=== PATIENT | male | born 1985 | race Hispanic/Latino ===

== ENCOUNTER 2017-01-03 15:37 | Inpatient (IN) | payer MEDICAID, OTHER ==
[2017-01-03 15:47] VITALS: BMI 31.6
--- NOTE | 2017-01-03 15:53 | C.PDOC ---
History Of Present Illness 31 Y/O MALE PRESENTS TO ED REQUESTING HEROIN DETOX. PT WAS PRESCREENED PRIOR TO ARRIVAL. NOTES LAST USE WAS THIS MORNING. PT DENIES SI/HI, NAUSEA, VOMITING, OR ANY OTHER MEDICAL COMPLAINTS. Time Seen by Provider: 01/03/17 15:53 Chief Complaint (Nursing): Substance Abuse History Per: Patient History/Exam Limitations: no limitations Onset/Duration Of Symptoms: Persistent Current Symptoms Are (Timing): Still Present Modifying Factor(s): Narcotics Associated Symptoms: denies: Suicidal Thoughts, Suicidal Plan Recent travel outside of the [place]: No Past Medical History Reviewed: Historical Data, Nursing Documentation, Vital Signs Vital Signs: Last Vital Signs Temp 98.9 F 01/03/17 15:47 Pulse 99 H 01/03/17 15:47 Resp 18 01/03/17 15:47 BP 143/85 01/03/17 15:47 Pulse Ox 97 01/03/17 16:57 - Medical History PMH: Depression - [facility] Procedures CLOSURE SKIN & SUBCUTANEOUS NEC (09/22/06) DRUG DETOXIFICATION (06/03/15) INJECT/INFUSE NEC (01/01/07) Family History: States: Unknown Family Hx - Social History Hx Tobacco Use: Yes Hx Alcohol Use: No Hx Substance Use: Yes - Immunization History Hx Tetanus Toxoid Vaccination: No Hx Influenza Vaccination: No Hx Pneumococcal Vaccination: No Review Of Systems Except As Marked, All Systems Reviewed And Found Negative. Constitutional: Negative for: Fever, Chills, Sweats Cardiovascular: Negative for: Chest Pain Respiratory: Negative for: Cough Gastrointestinal: Negative for: Vomiting Skin: Negative for: Rash Psych: Negative for: Withdrawal Physical Exam - Physical Exam Appears: Non-toxic, No Acute Distress Skin: Normal Color, Warm, Dry Head: Atraumatic, Normacephalic Chest: Symmetrical Cardiovascular: Rhythm Regular, No Murmur Respiratory: Normal Breath Sounds, No Rales, No Rhonchi, No Wheezing Gastrointestinal/Abdominal: Soft, No Tenderness Back: Normal Inspection Extremity: Normal ROM, Capillary Refill (< 2 sec. ) Neurological/Psych: Oriented x3 ED Course And Treatment - Laboratory Results Result Diagrams: 01/03/17 16:06 01/03/17 16:06 O2 Sat by Pulse Oximetry: 97 (RA) Pulse Ox Interpretation: Normal Reevaluation Time: 16:37 Reassessment Condition: Unchanged (MED CLEAR FOR DETOX) Disposition Discussed With DrJake: Alfred Marin Counseled Patient/Family Regarding: Studies Performed, Diagnosis - Disposition Disposition: HOSPITALIZED Disposition Time: 16:51 Condition: STABLE - POA Present On Arrival: None - Clinical Impression Clinical Impression: Opiate dependence - Scribe Statement The provider has reviewed the documentation as recorded by the Toritoibdave Ramos Provider Scribe Attestation: All medical record entries made by the Scribe were at my direction and personally dictated by me. I have reviewed the chart and agree that the record accurately reflects my personal performance of the history, physical exam, medical decision making, and the department course for this patient. I have also personally directed, reviewed, and agree with the discharge instructions and disposition. Decision To Admit - Pt Status Changed To: Hospital Disposition Of: Inpatient - Admit Certification Admit to Inpatient:: After my assessment, the patient will require hospitalization for at least two midnights. This is because of the severity of symptoms shown, intensity of services needed, and/or the medical risk in this patient being treated as an outpatient. - InPatient: Physician Admission Certification: I certify that this patient requires 2 or more midnights of care for the following reason:: SEE NOTE - . Bed Request Type: Detox Admitting Physician: Alfred Marin Patient Diagnosis: Opiate dependence
[2017-01-03 16:10] LABS: BASO # 0.1 K/uL (0.0-0.2); EOS # 0.3 K/uL (0.0-0.7); EOS % 2.2 % (0.0-4.0); HEMATOCRIT 40.9 % (35.0-51.0); LYMPH # 3.8 K/uL (1.0-4.3); LYMPH % 33.1 % (20.0-40.0); MEAN CELL VOLUME 82.6 fL (80.0-94.0); MEAN CORPUSCULAR HEMOGLOBIN 27.4 pg (27.0-31.0); MEAN CORPUSCULAR HGB CONC 33.2 g/dL (33.0-37.0); MEAN PLATELET VOLUME 7.5 fL (7.2-11.7); MONO # 0.5 K/uL (0.0-0.8); MONO % 4.3 % (0.0-10.0); RED CELL DISTRIBUTION WIDTH 14.6 % (11.5-14.5); WHITE BLOOD COUNT 11.6 K/uL (4.8-10.8)
[2017-01-03 16:17] LABS: RBC URINE 1 /hpf (0-3); URINE BACTERIA RARE (<OCC); URINE BILIRUBIN NEGATIVE (NEGATIVE); URINE BLOOD NEGATIVE (NEGATIVE); URINE COLOR Yellow (YELLOW); URINE GLUCOSE (UA) NORMAL (Normal); URINE KETONE NEGATIVE (NEGATIVE); URINE LEUKOCYTE ESTERASE NEG Leu/uL (Negative); URINE PROTEIN NEGATIVE (NEGATIVE); URINE UROBILINOGEN NORMAL mg/dL (0.2-1.0); WBC URINE 1 /hpf (0-5)
[2017-01-03 16:18] LABS: CHLORIDE 98 mmol/L (98-107)
[2017-01-03 16:19] LABS: POTASSIUM 3.8 mmol/L (3.6-5.2); SODIUM 140 mmol/L (132-148)
[2017-01-03 16:21] LABS: ALB/GLOB RATIO 1.5 (1.0-2.1); ALKALINE PHOSPHATASE 61 U/L (38-126); ALT/SGPT 45 U/L (21-72); AST/SGOT 32 U/L (17-59); BILIRUBIN,TOTAL 0.6 mg/dL (0.2-1.3); BLOOD UREA NITROGEN 12 mg/dL (9-20); CARBON DIOXIDE 27 mmol/L (22-30); GFR AFRICAN-AMERICAN > 60; GLUCOSE,RANDOM 100 mg/dL (75-110); TOTAL PROTEIN 7.3 g/dL (6.3-8.3)
[2017-01-03 16:22] LABS: ALCOHOL SERUM < 10 mg/dl (0-10); CALCIUM 9.2 mg/dl (8.6-10.4)
--- NOTE | 2017-01-04 08:27 | PCM.PSYCH ---
Initial Psychiatric Evaluation - Initial Psychiatric Evaluation Type of Admission: Voluntary Legal Status: Capacity Chief Complaint (in patient's own words): "I need to get clean" Patient's Reaction to Hospitalization: positive History of Present Illness and Precipitating Events: Pt is a 31 yo male with history of opioid use disorder admitted for detox. 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 Pt uses 40 bags of heroin per day, intravenously. Last use was 1pm yesterday, 4 bags. Pt first started using approximately 6 years ago, when a friend introduced him to heroin. Pt has been to detox 3 times and rehab once ( [facility]). Longest period of sobriety was 8 months in 2011 after participating in halfway inpatient rehab. Pt is considering vivitrol/suboxone/ methadone program or IOP following detox. Denies any other drug use: PCP, cannabis, benzodiazepines, amphetamines, pain pills, and alcohol. Pt complains of insomnia, abdominal cramps, nausea, loss of appetite, back pain, diaphoresis , and rhinorrhea. Pt admits to smoking 1 pack of cigarettes per day. Denies suicidal ideation, homicidal ideation, and hallucinations. PMHx: denies Medications: denies Past Psych Hx: Opioid use disorder Family Psych Hx: denies Legal issues: Probation, states he has court date 01/08 9AM. Current Medications: Active Medications Generic Name Dose Route Start Last Admin Trade Name Freq PRN Reason Stop Dose Admin Clonidine HCl 0.1 mg 01/03/17 18:31 Catapres PO Q8 PRN opiate withdrawal Trazodone HCl 50 mg 01/03/17 18:30 01/03/17 21:24 Desyrel PO 50 mg HS PRN Administration Insomnia Past Psychiatric History - Past Psychiatric History Pertinent Medical Hx (Current Medical&Sleep Prob, Allergies): Allergies Allergy/AdvReac Type Severity Reaction Status Date / Time Sulfa (Sulfonamide Allergy RASH Verified 01/03/17 15:46 Antibiotics) No Known Home Med 01/03/17 Review of Systems - Constitutional Constitutional: Sweats - EENT Nose/Mouth/Throat: As Per HPI - Gastrointestinal Gastrointestinal: Cramping, Nausea - Musculoskeletal Musculoskeletal: Myalgias Mental Status Examination - Personal Presentation Personal Presentation: Looks stated age - Affect Affect: Constricted - Motor Activity Motor Activity: Calm - Reliability in Providing Information Reliability in Providing Information: Good - Speech Speech: Organized - Mood Mood: Anxious - Formal Thought Process Formal Thought Process: No Impairment - Cognitive Functions Orientation: Person, Place, Situation, Time Sensorium: Alert Attention/Concentration: Attentive Abstract Thinking: Umpire Estimate of Intelligence: Average Judgement: Intact, as evidence by: Insight regarding need for hospitalization Memory: Recent intact, as evidence by: Ability to recall events of the day, Remote intact, as evidenced by: Abilit to recall sig. life events - Risk Risk: Withdrawal, Diminished functioning - Strength & Assets Inventory Strength & Assets Inventory: Family support, Other (child on the way) - Limitations Limitations: Other (unemployed, on probation) DSM 5 DX - DSM 5 DSM 5 Diagnosis: Primary: Opioid withdrawal Opioid use disorder-severe - Recommended/Plan of Treatment Treatment Recommendations and Plan of Treatment: Opioids: -Methadone taper -As needed meds -Attend groups and activities -[place], CBT -Consider MAT 32 minutes Projected ELOS: 4 days Prognosis: Good with treatment - Smoking Cessation Smoking Cessation Initiated: Yes
[2017-01-04] MEDS ORDERED: Aluminum Hydroxide/Magnesium Hydroxide Susp (30 mL) PO PRN (08:45)
--- NOTE | 2017-01-05 13:20 | PCM.PYCHPN ---
Psychiatric Progress Note - Psychiatric Progress Note Patient seen today, length of contact: 15 minutes Patient Chief Complaint: I'm feeling better but have some problem sleeping. Problems Identified/Issues Discussed: Patient seen. Chart reviewed. Case discussed with the staff. Issues related to illness and treatment were discussed with the patient. Reported compliant with treatment with no adverse affects. Tolerating treatment very well. Patient reported feeling better but still has sleeping problem, couldn't sleep at night. We will increase the dose of trazodone from 50 mg to 100 mg. Patient understood and agreed. At the time of evaluation, patient was awake alert oriented 3, had no delusions, no auditory or visual hallucinations, no suicidal ideations or homicidal ideations. Medical Problems: None reported Diagnostic Results: Reviewed DSM 5 Symptoms Update: Improving with treatment Medication Change: Yes (Dose of trazodone increased to 100 mg) Medical Record Reviewed: Yes Mental Status Examination - Cognitive Function Orientation: Person, Place, Situation, Time Memory: Intact Attention: WNL Concentration: WNL Association: WN Fund of Knowledge: [facility] Decription of patient's judgement and insights: Fair - Mood Mood: Anxious (Much less than before) - Affect Affect: Other (Appropriate) - Speech Speech: Appropriate - Formal Thought Process Formal Thought Process: No Impairment Psychotic Thoughts and Behaviors: None - Suicidal Ideation Suicidal Ideation: No - Homicidal Ideation Homicidal Ideation: No Goal/Treatment Plan - Goal/Treatment Plan Need for Continued Stay: Remain at risks for inpatient hospitalization, Discharge may exacerbated symptoms, Severe functional impairment Progress Toward Problem(s) and Goals/Treatment Plan: Patient education Supportive therapy Increase the dose of trazodone from 50 mg to 100 mg Continue rest of the treatment as before Estimated Date of D/C: 01/08/17 - Smoking Cessation Smoking Cessation Initiated: Yes
--- NOTE | 2017-01-06 11:44 | PCM.PYCHPN ---
Psychiatric Progress Note - Psychiatric Progress Note Patient seen today, length of contact: 15 minutes Patient Chief Complaint: I'm feeling better. Last night I slept better. Problems Identified/Issues Discussed: Patient seen. Chart reviewed. Case discussed with the staff. Issues related to illness and treatment were discussed with the patient. Reported compliant with treatment with no adverse affects. Tolerating treatment very well. Patient reported feeling better, slept good at night after increasing trazodone. At the time of evaluation, patient was awake alert oriented 3, had no delusions, no auditory or visual hallucinations, no suicidal ideations or homicidal ideations. Medical Problems: None reported Diagnostic Results: Reviewed DSM 5 Symptoms Update: Improving with treatment Medication Change: No Medical Record Reviewed: Yes Mental Status Examination - Cognitive Function Orientation: Person, Place, Situation, Time Memory: Intact Attention: WNL Concentration: WNL Association: WNL Fund of Knowledge: [facility] Decription of patient's judgement and insights: Fair - Mood Mood: Anxious (Much less than before) - Affect Affect: Other (Appropriate) - Speech Speech: Appropriate - Formal Thought Process Formal Thought Process: No Impairment Psychotic Thoughts and Behaviors: None - Suicidal Ideation Suicidal Ideation: No - Homicidal Ideation Homicidal Ideation: No Goal/Treatment Plan - Goal/Treatment Plan Need for Continued Stay: Remain at risks for inpatient hospitalization, Discharge may exacerbated symptoms, Severe functional impairment Progress Toward Problem(s) and Goals/Treatment Plan: Patient education Supportive therapy Continue treatment as before Estimated Date of D/C: 01/08/17 - Smoking Cessation Smoking Cessation Initiated: Yes
[2017-01-06 15:32] VITALS: RESP 18
--- NOTE | 2017-01-07 11:05 | PCM.PYCHPN ---
Psychiatric Progress Note - Psychiatric Progress Note Patient seen today, length of contact: 15 minutes Patient Chief Complaint: "feeling a lot better Problems Identified/Issues Discussed: Pt was seen, chart reviewed and case discussed with staff. Pt states detox is going well and he feels "a lot better." States sleep has improved. Denies any withdrawal symptoms including shakes, sweats, abdominal pain, rhinnorhea. Denies suicidal ideation, homicidal ideation, hallucinations. Following detox, plan plan on suboxone program. Medication Change: No Medical Record Reviewed: Yes Mental Status Examination - Cognitive Function Orientation: Person, Place, Situation, Time Memory: Intact Attention: WNL Concentration: WNL Association: WNL Fund of Knowledge: WNL - Mood Mood: Neutral - Affect Affect: Other (Appropriate) - Speech Speech: Appropriate - Formal Thought Process Formal Thought Process: No Impairment - Suicidal Ideation Suicidal Ideation: No - Homicidal Ideation Homicidal Ideation: No Goal/Treatment Plan - Goal/Treatment Plan Need for Continued Stay: Remain at risks for inpatient hospitalization, Discharge may exacerbated symptoms, Severe functional impairment Progress Toward Problem(s) and Goals/Treatment Plan: Opioids: -Methadone taper -As needed meds -Attend groups and activities -[place], CBT -Refer to MAT Estimated Date of D/C: 01/08/17 - Smoking Cessation Smoking Cessation Initiated: Yes
[2017-01-08 06:38] VITALS: BP 119/85; PULSE 91; TEMP 98.3; O2SAT 98
--- NOTE | 2017-01-08 13:46 | PCM.PYCHDC ---
Mental Status Examination - Mental Status Examination Orientation: Person, Place, Situation, Time Memory: Impaired Mood: Anxious Affect: Constricted Speech: Appropriate Attention: WNL Concentration: WNL Association: WNL Fund of Knowledge: WNL Formal Thought Process: No Impairment Suicidal Ideation: No Current Homicidal Ideation?: No Discharge Summary - Discharge Note Reason for Hospitalization: positive Consultations:: List each consultation separately and include: 1. Reason for request. 2. Findings. 3. Follow-up Summary of Hospital Course include:: 1. Description of specific treatment plan utilized for patients during their course of treatmen. 2. Summarize the time- course for resolution of acute symptoms and/or regressed behaviors. 3. Describe issues identified and worked on during hospitalization. 4. Describe medication utilized. 5. Describe medical problems identified and treated. 6. Reassessment of suicide risk Summary of Hospital Course: On admission: Pt is a 31 yo male with history of opioid use disorder admitted for detox. 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 Pt uses 40 bags of heroin per day, intravenously. Last use was 1pm yesterday, 4 bags. Pt first started using approximately 6 years ago, when a friend introduced him to heroin. Pt has been to detox 3 times and rehab once ( [facility]). 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 Pt is considering vivitrol/suboxone/ methadone program or IOP following detox. Denies any other drug use: PCP, cannabis, benzodiazepines, amphetamines, pain pills, and alcohol. Pt complains of insomnia, abdominal cramps, nausea, loss of appetite, back pain, diaphoresis , and rhinorrhea. Pt admits to smoking 1 pack of cigarettes per day. Denies suicidal ideation, homicidal ideation, and hallucinations. PMHx: denies Medications: denies Past Psych Hx: Opioid use disorder Family Psych Hx: denies Legal issues: Probation, states he has court date 01/08 9AM. Hospital course: The pt was admitted and started on treatment with psychotherapy, support, psychoeducation and medications. PR and CBT used. The pt attended groups and activities, as well as milieu therapy. All the risks and benefits of medications are discussed and the patient understood and agreed. After care discussed with the patient. He refused rehab and IOP but said he would consider suboxone maintenance He was somewhat unmotivated - Final Diagnosis (DSM 5) Condition upon Discharge: STABLE DSM 5: Primary: Opioid withdrawal Opioid use disorder-severe Disposition: HOME/ ROUTINE Follow-up Treatment Plan: Continue below medications after discharge. Follow after care plan as discussed. Sbx tx Use relapse prevention skills Return to ER or call 911 if suicidal, homicidal or symptoms relapse. Stay away from stress, alcohol and drugs. Prescriptions/Medication Reconciliation: traZODone [Desyrel] 100 mg PO HS PRN #30 tab PRN Reason: Insomnia Gabapentin [Neurontin] 300 mg PO TID #90 cap - Smoking Cessation Smoking Cessation Medication prescribed: No - Antipsychotic Medications Pt discharged on 2 or more routine antipsychotic medications: No
== END 2017-01-08 07:20 | disposition home or self-care (01) | DRG 745 ==
LOC: C.ER 15:37 → C.7D 17:20
PROC: HZ2ZZZZ Detoxification Services for Substance Abuse Treatment (ICD-10-PCS; principal; 2017-01-03)
PROC: HZ59ZZZ Individual Psychotherapy for Substance Abuse Treatment, Supportive (ICD-10-PCS; 2017-01-03)
PROC: HZ46ZZZ Group Counseling for Substance Abuse Treatment, Psychoeducation (ICD-10-PCS; 2017-01-03)
DX: F11.23 Opioid dependence with withdrawal (principal); F17.210 Nicotine dependence, cigarettes, uncomplicated; Z88.2 Allergy status to sulfonamides